=== PATIENT | female | born 1945 | race Caucasian/White ===

== ENCOUNTER → 2017-05-31 | Outpatient (CLI) | payer MEDICARE, OTHER ==
[~2017-05-31] MED LIST: ASPIRIN 81MG TA81 MG PO; CYMBALTA20 MG PO; HYDROXYCHLOROQ200 MG PO; MELOXICAM7.5 MG PO; MICARDIS HCT 121 TAB PO; MULTI-VITAMINS1 TAB PO; PREMARIN 0.3MG0.3 MG PO; VITAMIN D32000 IU PO
[2017-05-31 09:38] LABS: HEMOGLOBIN 13.9 g/dL (12.2-16.2); LYMPH # 1.9 K/mm3 (0.7-4.5); LYMPH % 19.8 % (10-50.0)
[2017-05-31 10:31] LABS: URINE BILIRUBIN - DIPSTICK NEGATIVE (NEG); URINE BLOOD 2+ (NEG)
[2017-05-31 10:58] LABS: BUN 25 mg/dL (7-18)
[2017-05-31 11:00] LABS: GFR (ESTIMATED) 62 ML/MIN (59-)
--- NOTE | 2017-06-05 12:28 | RADIOLOGY REPORT PS360 ---
DIG MAMM-SCREEN [facility]ICHARD W/CAD CAD Screening ORDERING PHYSICIAN : Leila Lim MD PATIENT AGE: 71 years GENDER: Female COMPARISON: Previous mammograms: November 2011, October 2015, March 2014, June 2010 INDICATION: Routine screening . History states taking female hormones. Otherwise No new complaints noncontributory family history TECHNIQUE: Standard CC and MLO images were obtained. R2 CAD reviewed. FINDINGS: Dense areas of breast tissue are seen at the central breast extending towards upper-outer quadrant. Pattern is similar to previous studies No new suspicious findings. No dominant mass nor suspicious calcifications are identified with prior films are very helpful in supporting stability in this patient. RIGHT BREAST: No new findings.. Tiny Asymmetric right intramammary lymph node at the far deep breast on MLO view is been seen on previous studies dating back to 2011 LEFT BREAST:Mildly asymmetric glandular pattern appears stable IMPRESSION: ======== Stable bilateral mammogram, with no new areas of concern Routine annual follow-up recommended BI-RADS CATEGORY: 1_Negative RECOMMENDED FOLLOWUP: 12M 12 MONTH FOLLOW-UP (A letter has been sent to the patient regarding results of the study.) .
== END ==
LOC: RAD 08:59 → LAB 08:59 → RAD 09:00
PROVIDERS: Internal Medicine Rheumatology
DX: Z12.31 Encounter for screening mammogram for malignant neoplasm of breast (principal); E79.0 Hyperuricemia without signs of inflammatory arthritis and tophaceous disease; M32.9 Systemic lupus erythematosus, unspecified; Z79.899 Other long term (current) drug therapy
CPT/HCPCS: G0202